=== PATIENT | female | born 1990 | race Caucasian/White ===

== ENCOUNTER → 2018-06-03 | Outpatient (CLI) | payer OTHER ==
--- NOTE | 2018-06-03 10:19 | DIAGNOSTIC IMAGING REPORT ---
THYROID ULTRASOUND HISTORY: HYPOTHYROIDISM COMPARISON: None. FINDINGS: Right lobe: 4.9 x 1.8 x 1.6 cm. The gland is heterogeneous and hypervascular. No nodules. Left lobe: 5.2 x 1.7 x 1.1 cm. The gland is heterogeneous and hypervascular. No nodules. Isthmus: 2 mm in thickness. No nodules. IMPRESSION: No thyroid nodules. Heterogeneous and hypervascular thyroid gland. This raises the possibility of a thyroiditis. Electronically signed by: Frederick Read M.D. 06/03/2018 10:17 AM Dictated Date/Time: 06/03/2018 10:17 AM
== END | disposition home or self-care (01) ==
LOC: C.ULTRBC 08:54
PROVIDERS: ATTEND Family Medicine
DX: E03.9 Hypothyroidism, unspecified (principal)